=== PATIENT | female | born 1960 | race Caucasian/White ===

== ENCOUNTER 2018-05-22 18:03 | Emergency (ER) | payer BC, OTHER ==
[~2018-05-22] VITALS: Ht 152.4 cm; Wt 54.4 kg
[~2018-05-22 18:03] MED LIST: HYDR-3326 PO; LEVO112T5 PO; METF500T PO; ROSU20TA PO
[2018-05-22] MEDS ORDERED: SERT50TA PO (18:17)
--- NOTE | 2018-05-22 18:45 | NUR ---
Dr Belcher is now at bedside doing the MSE, pending MD orders.
[2018-05-22] MEDS ORDERED: METOCLOPRAMIDE HCL 10 MG/2 ML VIAL ONE (19:00)
[2018-05-22] MEDS ORDERED: METOCLOPRAMIDE HCL 10 MG/2 ML VIAL IV ONE (19:00)
[2018-05-22] MEDS ORDERED: IV NORMAL SALINE 1000 ML BAG IV ONE ×2 (19:00→20:15)
[2018-05-22] MEDS ORDERED: diphenhydrAMINE 50 MG/1 ML VIAL IV ONE (19:00)
[2018-05-22 19:02] LABS: BASOPHILS % (AUTO) 0.5 % (0.0-2.0); EOSINOPHILS # (AUTO) 0.4 K/uL (0.0-0.7); EOSINOPHILS % (AUTO) 5.4 % (0.0-7.0); HEMATOCRIT 35.7 % (31.2-41.9); HEMOGLOBIN 12.4 g/dL (10.9-14.3); LYMPHOCYTES # (AUTO) 2.3 K/uL (20.0-40.0); LYMPHOCYTES % (AUTO) 34.2 % (20.5-51.5); MEAN CORPUSCULAR HEMOGLOBIN 31.6 uug (24.7-32.8); MEAN CORPUSCULAR HGB CONC 35 g/dL (32.3-35.6); MEAN CORPUSCULAR VOLUME 91.2 fL (75.5-95.3); MONOCYTES # (AUTO) 0.6 K/uL (2.0-10.0); NEUTROPHILS # (AUTO) 3.6 K/uL (1.8-8.9); NEUTROPHILS % (AUTO) 51.9 % (38.5-71.5); PLATELET COUNT (AUTO) 290 K/uL (179-408); RED BLOOD CELL COUNT(AUTO) 3.92 MIL/uL (3.63-4.92); WHITE BLOOD COUNT (AUTO) 6.9 K/uL (3.8-11.8)
[2018-05-22] MEDS ORDERED: diphenhydrAMINE 50 MG CAPSULE ONE (19:09)
[2018-05-22] MEDS ORDERED: diphenhydrAMINE 50 MG CAPSULE PO ONE (19:15)
--- NOTE | 2018-05-22 19:15 | NUR ---
RECEIVED SHIFT REPORT FROM ABDI BOLIVAR.
[2018-05-22 19:17] LABS: CARBON DIOXIDE 27 mmol/L (21-32); CHLORIDE 104 mmol/L (98-107); CREATININE 0.8 mg/dL (0.6-1.3); GLUCOSE 131 mg/dL (74-106); POTASSIUM 4.3 mmol/L (3.5-5.1); UREA NITROGEN, BLOOD 12 mg/dL (7-18)
[2018-05-22 19:23] LABS: ALANINE AMINOTRANSFERASE 45 U/L (14-59); ALKALINE PHOSPHATASE 100 U/L (50-136); BILIRUBIN,DIRECT < 0.1 mg/dL (0.0-0.2); BILIRUBIN,TOTAL 0.2 mg/dL (0.2-1.0); TOTAL PROTEIN, SERUM 8.2 g/dL (6.4-8.2)
[2018-05-22 19:26] LABS: ASPARTATE AMINOTRANSFERASE 45 U/L (15-37)
[2018-05-22 19:28] LABS: *BILIRUBIN,URIN NEGATIVE (NEGATIVE); *BLOOD, URINE 1+ (NEGATIVE); *CLARITY,URINE CLEAR (CLEAR); *COLOR,URINE YELLOW (YELLOW); *KETONES,URINE NEGATIVE (NEGATIVE); *PROTEIN,URINE NEGATIVE (NEGATIVE); *UROBILINOGEN,URINE 0.2 E.U./dl (NORMAL); LEUKOCYTE ESTERASE ,URINE TRACE (NEGATIVE); NITRITE, URINE NEGATIVE (NEGATIVE); UGLUCOSE NEGATIVE (NEGATIVE)
[2018-05-22 19:31] LABS: BACTERIA,URINE NONE SEEN /HPF (NONE SEEN); RBC,URINE 0-3 /HPF (0-3); SQUAMOUS EPITHELIAL CELL,UR FEW /HPF (NONE SEEN); WBC,URINE 0-3 /HPF (0-3)
--- NOTE | 2018-05-22 19:32 | NUR ---
PT TRANS TO RADIOLOGY FOR CT SCAN.
--- NOTE | 2018-05-22 19:47 | NUR ---
PT BACK IN DEPARTMENT FROM CT SCAN.
[2018-05-22] MEDS ORDERED: MORPHINE SULFATE 2 MG/1 ML DISP.SYRIN ONE (19:52)
[2018-05-22] MEDS ORDERED: MORPHINE SULFATE 2 MG/1 ML DISP.SYRIN IV ONE (20:00)
[2018-05-22] MEDS ORDERED: HYDROMORPHONE 1 MG/1 ML DISP.SYRIN IV ONE ×2 (20:15→21:45)
[2018-05-22] MEDS ORDERED: HYDROMORPHONE 1 MG/1 ML DISP.SYRIN ONE ×2 (20:17→21:42)
[2018-05-22] MEDS ORDERED: SWABABLE VALVE TRANSFER SET EA MC ONE (21:02)
[2018-05-22] MEDS ORDERED: IOHEXOL 350 100 ML INFUS..BTL ONE (21:02)
[2018-05-22] MEDS ORDERED: IV NORMAL SALINE 250 ML IV ONE (21:03)
[2018-05-22] MEDS ORDERED: ONDANSETRON 4 MG/2 ML VIAL ONE (21:42)
[2018-05-22] MEDS ORDERED: ONDANSETRON 4 MG/2 ML VIAL IV ONE (21:45)
--- NOTE | 2018-05-22 22:57 | NUR ---
Patient discharged to home in stable conditon. Written and verbal after care instructions given. Patient verbalizes understanding of instructions. PT D/C HOME W/ PRESCRIPTION. ALL BELONGINGS W/ PT. PT SELF-AMBULATED WITHOUT DIFFICULTY. PT WILL BE DRIVEN HOME BY FRIEND IN PRIVATE VEHICLE.
[2018-05-22 22:58] VITALS: BP 136/72
== END 2018-05-22 22:59 | disposition home or self-care (01) ==
LOC: ER 18:04
DX: G43.909 Migraine, unspecified, not intractable, without status migrainosus (principal); E11.9 Type 2 diabetes mellitus without complications; E78.00 Pure hypercholesterolemia, unspecified; Z90.49 Acquired absence of other specified parts of digestive tract
CPT/HCPCS: 36415; 70450; 70496; 80048; 80076; 81001; 85025; 96361; 96374; 96375; 96376; 99285; J1170 ×2; J2270; J2405; J2765; Q0163; Q9967; A4663; J7030; J7050

== ENCOUNTER 2020-07-07 07:54 | Emergency (ER) | payer BC, MEDICAID ==
[~2020-07-07] VITALS: Ht 152.4 cm; Wt 54.4 kg
[~2020-07-07 07:54] MED LIST changes: -HYDR-3326 PO; -ROSU20TA PO; +ROSU20TA2 PO; +SERT50TA PO
--- NOTE | 2020-07-07 08:06 | NUR ---
PT IS IN ROOM #1B. DR LYNN EVALUATED THE PT.
[2020-07-07 09:11] LABS: *BILIRUBIN,URIN NEGATIVE (NEGATIVE); *BLOOD, URINE 3+ (NEGATIVE); *CLARITY,URINE SLIGHTLY CLOUDY (CLEAR); *COLOR,URINE AMBER (YELLOW); *KETONES,URINE NEGATIVE (NEGATIVE); LEUKOCYTE ESTERASE ,URINE 3+ (NEGATIVE); NITRITE, URINE POSITIVE (NEGATIVE); PH,URINE 5.5 (5.0-8.0); UGLUCOSE TRACE (NEGATIVE)
[2020-07-07 09:58] VITALS: BP 131/74
--- NOTE | 2020-07-07 09:58 | NUR ---
PT WAS D/C'd TO HOME. D/C INSTRUCTIONS GIVEN TO THE PT BY DR LYNN.
[2020-07-07 12:20] LABS: BACTERIA,URINE MANY /HPF (NONE SEEN); RBC,URINE TNTC /HPF (0-3); SQUAMOUS EPITHELIAL CELL,UR FEW /HPF (NONE SEEN); WBC,URINE 20-50 /HPF (0-3)
== END 2020-07-07 09:59 | disposition home or self-care (01) ==
LOC: ER 07:54
DX: R10.9 Unspecified abdominal pain (principal); N39.0 Urinary tract infection, site not specified; E11.9 Type 2 diabetes mellitus without complications; Z90.49 Acquired absence of other specified parts of digestive tract; Z87.440 Personal history of urinary (tract) infections; Z95.5 Presence of coronary angioplasty implant and graft; E07.9 Disorder of thyroid, unspecified; E78.00 Pure hypercholesterolemia, unspecified; Z79.84 Long term (current) use of oral hypoglycemic drugs; Z79.899 Other long term (current) drug therapy; Z79.890 Hormone replacement therapy; Z83.3 Family history of diabetes mellitus; Z82.49 Family history of ischemic heart disease and other diseases of the circulatory system
CPT/HCPCS: 87077; 87086; A4663